=== PATIENT | male | born 1955 | race Caucasian/White ===

== ENCOUNTER 2019-12-12 17:03 | Inpatient (IN) | payer BC ==
[~2019-12-12] VITALS: Ht 188 cm; Wt 119.0 kg
--- NOTE | 2019-12-12 17:56 | NUR ---
outside laborer: Pt ambulatory to ED room 27 from lobby at this time.
--- NOTE | 2019-12-12 18:02 | NUR ---
PT WAS DX WITH FLU B LAST TUESDAY. THEN ON THIS TUESDAY AND WAS DX WITH UTI. CURRENTLY ON ABX. HAS TAKEN 3 DOSES OF ABX, BUT VOMITTED IMMEDIALTELY AFTER TAKING 3RD DOSE. HAS URINARY FREQUENCY, DIARRHEA, AND NASUEA. NO FEVER. STATES HE HAS CHILLS AND SWEATING. URINE SENT TO LAB. ACCOMPANIED BY .
[2019-12-12 18:08] LABS: CULTURE INDICATED? YES; MICROSCOPIC INDICATED
[2019-12-12] MEDS ORDERED: ONDANSETRON 2MG/ML, 2ML IVPush ONE (18:30)
[2019-12-12] MEDS ORDERED: ACETAMINOPHEN 500 MG TABLET PO ONE (18:30)
[2019-12-12] MEDS ORDERED: CEFTRIAXONE PMX 2GM/50ML 50 ML IV SCH (18:30)
[2019-12-12] MEDS ORDERED: SODIUM CHLORIDE 0.9% 1,000ML IVBOLUS ONE (18:30)
--- NOTE | 2019-12-12 18:50 | NUR ---
TASK RN: PIV EST W/O DIFFICULTY. PT ;OOB AND AMBULATED TO BATHROOM UPRIGHT STEADY GAIT. RTD TO ROOM W/O INICDENT. CALL LIGHT W/I REACH.
[2019-12-12] MEDS ORDERED: CEFTRIAXONE PMX 2GM/50ML 50 ML ONE ×2 (18:54)
[2019-12-12] MEDS ORDERED: ONDANSETRON 2MG/ML, 2ML ONE (18:55)
[2019-12-12] MEDS ORDERED: ACETAMINOPHEN 500 MG TABLET ONE (18:55)
[2019-12-12 18:57] LABS: MEAN CORPUSCULAR HEMOGLOBIN 30.1 pg (27.5-34.5); MEAN CORPUSCULAR HGB CONC 33.7 g/dL (33.2-36.2); MEAN CORPUSCULAR VOLUME 89.2 fL (81-97); MEAN PLATELET VOLUME 7.2 fL (7.4-10.4); PLATELET COUNT 392 x10^3/uL (130-400); RED BLOOD COUNT 4.59 x10^6/uL (4.38-5.82); RED CELL DISTRIBUTION WIDTH 14.2 % (9.4-14.8)
[2019-12-12 19:02] LABS: ALANINE AMINOTRANSFERASE 42 U/L (12-78); ALBUMIN 3.1 g/dL (3.4-5.0); ANION GAP 10 mmol/L (5-15); CALCIUM 8.9 mg/dL (8.5-10.1); CHLORIDE 99 mmol/L (98-107); CREATININE 1.34 mg/dL (0.7-1.3)
[2019-12-12 19:04] LABS: ALKALINE PHOSPHATASE 92 U/L (45-117); BILIRUBIN,TOTAL 0.9 mg/dL (0.2-1.0); TOTAL PROTEIN 7.9 g/dL (6.4-8.2)
--- NOTE | 2019-12-12 19:06 | NUR ---
TASK RN: IVF INFUSING W/O DIFFICULTY, PT MED NOTED FOR NAUSEA AND TEMP. BC X 2 COMPLETED AND ANTIBIOTIC INFUSING.
[2019-12-12 19:13] LABS: BASOPHILS % (AUTO) 0 % (0-1); EOSINOPHILS # (AUTO) 0.04 x10^3/uL (0-0.4); EOSINOPHILS % (AUTO) 0 % (1-7); LYMPHOCYTES # (AUTO) 1.61 x10^3/uL (1-3.4); LYMPHOCYTES % (AUTO) 5 % (22-44); MD SCAN; MONOCYTES # (AUTO) 1.44 x10^3/uL (0.2-0.8); MONOCYTES % (AUTO) 5 % (2-9); NEUTROPHILS # (AUTO) 29.15 x10^3/uL (1.8-6.8); NEUTROPHILS % (AUTO) 90 % (42-75)
[2019-12-12] MEDS ORDERED: LOSA50TA14 PO (19:56)
[2019-12-12] MEDS ORDERED: SODIUM CHLORIDE 0.9%, 500ML IVBOLUS ONE (20:00)
--- NOTE | 2019-12-12 20:00 | NUR ---
other rn, ceasar attempted to call report, notified that rn will call back for report
--- NOTE | 2019-12-12 20:01 | NUR ---
pt resting calmly, monitors in place, siderail sup x2, iv fluids infusing, call light within reach. awaiting ct result
[2019-12-12] MEDS ORDERED: morphine SULFATE 10 MG/ML, 1ML IVPush PRN (22:30)
[2019-12-12] MEDS ORDERED: ONDANSETRON 2MG/ML, 2ML IVPush PRN (22:30)
[2019-12-12] MEDS ORDERED: BISACODYL 10 MG SUPP PR PRN (22:30)
[2019-12-12] MEDS ORDERED: DOCUSATE 100 MG CAPSULE PO PRN (22:30)
[2019-12-12] MEDS ORDERED: hydrALAzine 20 MG/ML, 1ML IVPush PRN (22:30)
[2019-12-12] MEDS ORDERED: POLYETHYLENE GLYCOL 17 GM PACKET PO PRN (22:30)
[2019-12-12] MEDS ORDERED: ONDANSETRON ODT 4 MG PO PRN (22:30)
[2019-12-12] MEDS ORDERED: PROMETHAZINE 25 MG/ML, 1ML IM PRN (22:30)
[2019-12-12] MEDS: HEPARIN 5,000 UNITS/ML, 1ML SQ SCH (22:31)
[2019-12-12] MEDS: SODIUM CHLORIDE 0.9% 1,000 ML IV SCH (22:32)
[2019-12-12 22:56] LABS: FREE T4 (FREE THYROXINE) 1.41 ng/dL (0.76-1.46)
[2019-12-13 00:57] VITALS: BP 132/73
[2019-12-13] MEDS: ACETAMINOPHEN 325 MG TABLET PO PRN ×2 (01:09→14:54)
[2019-12-13 01:20] LABS: CLOSTRIDIUM DIFFICILE ANTIGEN NEGATIVE; CLOSTRIDIUM DIFFICILE TOXIN NEGATIVE (Negative)
[2019-12-13 05:13] LABS: ALBUMIN 2.4 g/dL (3.4-5.0); ANION GAP 8 mmol/L (5-15); CHLORIDE 105 mmol/L (98-107)
[2019-12-13 05:16] LABS: ALANINE AMINOTRANSFERASE 30 U/L (12-78); ALKALINE PHOSPHATASE 88 U/L (45-117); BILIRUBIN,TOTAL 0.6 mg/dL (0.2-1.0); CHOL/HDL RATIO 4.2; CHOLESTEROL, TOTAL 89 mg/dL (140-239); CREATININE 1.24 mg/dL (0.7-1.3); HDL CHOL % 24 % (26-37); HDL CHOLESTEROL (DIRECT) 21 mg/dL (40-60); LDL CHOLESTEROL,CALCULATED 53 mg/dL (54-169); LDL/HDL RATIO 2.5 (0.5-3.0); MEAN CORPUSCULAR HEMOGLOBIN 30.3 pg (27.5-34.5); MEAN CORPUSCULAR HGB CONC 33.9 g/dL (33.2-36.2); MEAN CORPUSCULAR VOLUME 89.3 fL (81-97); MEAN PLATELET VOLUME 7.6 fL (7.4-10.4); PLATELET COUNT 346 x10^3/uL (130-400); RED BLOOD COUNT 3.89 x10^6/uL (4.38-5.82); RED CELL DISTRIBUTION WIDTH 14.1 % (9.4-14.8); TOTAL PROTEIN 6.4 g/dL (6.4-8.2); TRIGLYCERIDES 75 mg/dL (50-200); VLDL CHOLESTEROL 15 mg/dL (0-25)
[2019-12-13] MEDS: SODIUM CHLORIDE 0.9% 1,000 ML IV SCH (05:30)
[2019-12-13] MEDS: HEPARIN 5,000 UNITS/ML, 1ML SQ SCH ×3 (05:39→23:02)
[2019-12-13 06:10] LABS: MD YES
[2019-12-13 06:22] LABS: BAND#(MANUAL) 0.28 x10^3/uL; BANDS%(MANUAL) 1 % (0-7); LYMPH#(MANUAL) 1.41 x10^3/uL (1-3.4); LYMPHS% (MANUAL) 5 % (22-44); MONOS#(MANUAL) 2.54 x10^3/uL (0.3-2.7); MONOS% (MANUAL) 9 % (2-9); SEG#(MANUAL) 23.97 x10^3/uL (1.8-6.8); SEGS% (MANUAL) 85 % (42-75); TOXIC GRAN 1+
[2019-12-13 06:24] LABS: <PLATELET ESTIMATE> ADEQUATE; <PLT MORPHOLOGY> NORMAL PLT MORPH; <RBC MORPHOLOGY> NORMAL
[2019-12-13 08:38] VITALS: BP 110/64
[2019-12-13] MEDS ORDERED: MAGNESIUM SULFATE PMX 2GM/50ML 50 ML ONE (08:55)
[2019-12-13] MEDS ORDERED: MAGNESIUM SULFATE PMX 2GM/50ML 50 ML IV ONE (09:00)
[2019-12-13] MEDS: OXYcodone IR 5MG TABLET PO PRN ×2 (09:52→17:19)
[2019-12-13 14:52] VITALS: BP 116/67
[2019-12-13] MEDS: LACTOBACILLUS CHEW TABLET PO SCH ×2 (17:17→19:53)
[2019-12-13] MEDS: NICOTINE 14MG/24 HR PATCH.TD24 TD SCH (17:17)
[2019-12-13] MEDS: CEFTRIAXONE PMX 2GM/50ML 50 ML IV SCH (19:53)
[2019-12-13 20:59] VITALS: BP 126/65
[2019-12-14 01:52] VITALS: BP 105/67
[2019-12-14 05:16] LABS: MEAN CORPUSCULAR HGB CONC 33.5 g/dL (33.2-36.2); MEAN CORPUSCULAR VOLUME 89.6 fL (81-97); MEAN PLATELET VOLUME 7.1 fL (7.4-10.4); PLATELET COUNT 371 x10^3/uL (130-400); RED BLOOD COUNT 3.63 x10^6/uL (4.38-5.82); RED CELL DISTRIBUTION WIDTH 13.9 % (9.4-14.8)
[2019-12-14] MEDS: ACETAMINOPHEN 325 MG TABLET PO PRN ×2 (05:20→16:24)
[2019-12-14 05:26] LABS: ANION GAP 7 mmol/L (5-15); CALCIUM 8.1 mg/dL (8.5-10.1); CHLORIDE 103 mmol/L (98-107)
[2019-12-14 05:28] LABS: CREATININE 0.82 mg/dL (0.7-1.3)
[2019-12-14 07:30] LABS: BASOPHILS # (AUTO) 0.01 x10^3/uL (0-0.1); BASOPHILS % (AUTO) 0 % (0-1); EOSINOPHILS # (AUTO) 0.05 x10^3/uL (0-0.4); EOSINOPHILS % (AUTO) 0 % (1-7); LYMPHOCYTES # (AUTO) 1.13 x10^3/uL (1-3.4); LYMPHOCYTES % (AUTO) 5 % (22-44); MD SCAN; MONOCYTES # (AUTO) 1.57 x10^3/uL (0.2-0.8); MONOCYTES % (AUTO) 7 % (2-9); NEUTROPHILS # (AUTO) 20.99 x10^3/uL (1.8-6.8); NEUTROPHILS % (AUTO) 88 % (42-75)
[2019-12-14] MEDS: HEPARIN 5,000 UNITS/ML, 1ML SQ SCH ×2 (07:46→16:24)
[2019-12-14] MEDS: LACTOBACILLUS CHEW TABLET PO SCH ×3 (07:46→19:38)
[2019-12-14 07:58] VITALS: BP 102/52
[2019-12-14] MEDS: OXYcodone IR 5MG TABLET PO PRN (11:49)
[2019-12-14 12:45] VITALS: BP 128/74
[2019-12-14] MEDS: NICOTINE 14MG/24 HR PATCH.TD24 TD SCH (16:24)
[2019-12-14] MEDS: BUTALB/APAP/CAFFEINE 50MG/325MG/40MG PO PRN (18:23)
[2019-12-14] MEDS: CEFTRIAXONE PMX 2GM/50ML 50 ML IV SCH (19:38)
[2019-12-14 19:44] VITALS: BP 109/61
[2019-12-15] MEDS: BUTALB/APAP/CAFFEINE 50MG/325MG/40MG PO PRN (00:23)
[2019-12-15 00:24] VITALS: BP 124/68
[2019-12-15] MEDS: OXYcodone IR 5MG TABLET PO PRN ×2 (00:30→06:46)
[2019-12-15 05:59] LABS: BASOPHILS # (AUTO) 0.03 x10^3/uL (0-0.1); BASOPHILS % (AUTO) 0 % (0-1); EOSINOPHILS # (AUTO) 0.15 x10^3/uL (0-0.4); EOSINOPHILS % (AUTO) 1 % (1-7); LYMPHOCYTES % (AUTO) 12 % (22-44); MD NO; MEAN CORPUSCULAR HEMOGLOBIN 30.1 pg (27.5-34.5); MEAN CORPUSCULAR HGB CONC 33.4 g/dL (33.2-36.2); MEAN CORPUSCULAR VOLUME 90.3 fL (81-97); MEAN PLATELET VOLUME 7.5 fL (7.4-10.4); MONOCYTES # (AUTO) 1.26 x10^3/uL (0.2-0.8); MONOCYTES % (AUTO) 10 % (2-9); NEUTROPHILS # (AUTO) 9.81 x10^3/uL (1.8-6.8); NEUTROPHILS % (AUTO) 76 % (42-75); PLATELET COUNT 358 x10^3/uL (130-400); RED BLOOD COUNT 3.66 x10^6/uL (4.38-5.82); RED CELL DISTRIBUTION WIDTH 13.8 % (9.4-14.8)
[2019-12-15 07:30] VITALS: BP 129/74
[2019-12-15] MEDS: LACTOBACILLUS CHEW TABLET PO SCH (08:31)
[2019-12-15] MEDS: HEPARIN 5,000 UNITS/ML, 1ML SQ SCH ×2 (08:31)
[2019-12-15] MEDS ORDERED: ACID1TAB7 PO (11:28)
[2019-12-15] MEDS ORDERED: NICO-486 TD (11:28)
[2019-12-15] MEDS ORDERED: CEFD300C37 PO (11:28)
[2019-12-15] MEDS ORDERED: TAMS-11 PO (11:32)
== END 2019-12-15 12:25 | disposition home or self-care (01) | DRG 871 ==
LOC: ED 20:31 → EDIP 20:53 → 4EST 21:02 → DCLOUNGE 12-15 12:11
PROVIDERS: ADMIT Internal Medicine; ATTEND Internal Medicine
DX: A41.9 Sepsis, unspecified organism (principal); N17.0 Acute kidney failure with tubular necrosis; E87.1 Hypo-osmolality and hyponatremia; N39.0 Urinary tract infection, site not specified; B96.20 Unspecified Escherichia coli [E. coli] as the cause of diseases classified elsewhere; I11.9 Hypertensive heart disease without heart failure; N40.0 Benign prostatic hyperplasia without lower urinary tract symptoms; Z82.3 Family history of stroke; Z96.652 Presence of left artificial knee joint; I10 Essential (primary) hypertension; I95.9 Hypotension, unspecified
CPT/HCPCS: 36415; 74176; 80048; 80053; 80061; 81001; 83036; 83605; 83735; 84439; 84443; 85025; 87040; 87077; 87086; 87186; 87324; 96365; 96375; G0378; J0696; J1644; J2405; Q0162; J3475; J7030; J7040